=== PATIENT | female | born 1965 | race Caucasian/White ===

== ENCOUNTER 2017-11-03 11:45 | Inpatient (IN) | payer OTHER ==
[~2017-11-03] VITALS: Ht 167.6 cm; Wt 67.0 kg
[2017-11-03 12:39] LABS: BASO % 0.1 %; BASO ABS # 0.01 K/uL (0-0.2); EOS % 0.2 %; EOS ABS # 0.02 K/uL (0-0.5); HEMATOCRIT 33.9 % (37-47); HEMOGLOBIN 10.8 g/dL (12.0-16.0); IG# 0.06 K/uL (0.00-0.02); LYMPH % 16.6 %; LYMPH ABS # 1.41 K/uL (1.2-3.4); MEAN CELL VOLUME 80.5 fL (80-100); MEAN CORPUSCULAR HEMOGLOBIN 25.7 pg (25-34); MEAN CORPUSCULAR HGB CONC 31.9 g/dl (32-36); MEAN PLATELET VOLUME 9.6 fL (7.4-10.4); MONO % 5.1 %; MONO ABS # 0.43 K/uL (0.11-0.59); NEUT % 77.3 %; NEUT ABS # 6.55 K/uL (1.4-6.5); PLATELET COUNT 334 K/uL (130-400); RED CELL DISTRIBUTION WIDTH SD 62.1 fL (36.4-46.3); WHITE BLOOD COUNT 8.48 K/uL (4.8-10.8)
[2017-11-03] MEDS ORDERED: MoRPHine SULFATE 4 MG/ML 1 ML CARP\\VIAL IV STA (12:45)
[2017-11-03] MEDS ORDERED: SODIUM CHLORIDE 0.9% 1000ML 1,000 ML IV STA (12:45)
[2017-11-03] MEDS ORDERED: ONDANSETRON INJ 2 MG/ML 2 ML VIAL IV STA (12:45)
[2017-11-03 12:58] LABS: CALCIUM 8.9 mg/dl (8.5-10.1); CREATININE 0.63 mg/dl (0.60-1.20); POTASSIUM 3.2 mmol/L (3.5-5.1); TOTAL PROTEIN 6.4 gm/dl (6.4-8.2)
[2017-11-03] MEDS ORDERED: METR-163 PO (13:13)
[2017-11-03] MEDS ORDERED: METO25TA4 PO (13:13)
[2017-11-03] MEDS ORDERED: AMLO10TA3 PO (13:13)
[2017-11-03] MEDS ORDERED: AZAT50TA17 PO (13:13)
[2017-11-03] MEDS ORDERED: RANI150T85 PO (13:13)
[2017-11-03] MEDS ORDERED: MISCCAP80 PO (13:13)
[2017-11-03] MEDS ORDERED: PARO1TAB27 PO (13:13)
[2017-11-03] MEDS ORDERED: INSDGIPEN SC (13:13)
[2017-11-03] MEDS ORDERED: ESOM20CA PO (13:13)
[2017-11-03] MEDS ORDERED: CHOL100010 PO (13:13)
[2017-11-03] MEDS ORDERED: PRED10TA PO (13:13)
[2017-11-03] MEDS ORDERED: OPTIRAY 320 IV PRN (13:45)
[2017-11-03] MEDS ORDERED: MoRPHine SULFATE 4 MG/ML 1 ML CARP\\VIAL ONE (16:08)
--- NOTE | 2017-11-03 16:58 | DIAGNOSTIC IMAGING REPORT ---
CT ABD/PELVIS IV AND ORAL CONT CLINICAL HISTORY: Abdominal pain. History of abscess. Possible bowel obstruction. COMPARISON STUDY: None. TECHNIQUE: Following the IV administration of mL of Optiray-320, CT scan of the abdomen and pelvis was performed from the lung bases to the proximal femurs. Images are reviewed in the axial, sagittal, and coronal planes. IV contrast was administered without complication. A dose lowering technique was utilized adhering to the principles of ALARA. CT DOSE: 583.67 mGycm FINDINGS: Lower chest: The heart is normal in size and configuration, without pericardial effusion. The lung bases and pleural spaces are clear. Liver: There is hepatic steatosis. No focal masses are visualized. Gallbladder: Cholelithiasis. Spleen: Top normal in size measuring 11 mm. Pancreas: Unremarkable. Adrenal glands: There is a 2 cm left adrenal gland nodule. Kidneys: There is symmetric renal cortical enhancement. The kidneys are normal in size without hydronephrosis. Bowel: There are postsurgical changes involving the right colon/terminal ileum region. There is bowel wall thickening of the distal ileum. There is an area of nodular small bowel wall thickening versus adjacent mesenteric nodularity. There is a small bowel feces sign. There is distal small bowel dilatation. Distal ileal loops measure up to 3.5 cm in diameter. The findings result in a partial small bowel obstruction. Correlation with patient's prior surgical history would be of benefit to determine whether the above-mentioned findings are infectious/inflammatory, or secondary to a neoplastic process. There is gas and fecal material present within the colon. There is mild sigmoid wall thickening versus a nondistended segment. Peritoneum: There is a small amount of free fluid present surrounding the liver, within the pelvis, and within the right lower quadrant mesentery. No free air is visualized. There are postsurgical changes of a ventral hernia mesh repair. Vasculature: The abdominal aorta is normal in course and caliber. Adenopathy: None. Pelvic viscera: The bladder, and pelvic viscera are unremarkable. Skeletal structures: No destructive osseous lesions are seen. IMPRESSION: 1. Postsurgical changes within the right colon/terminal ileum region. 2. Mildly dilated distal ileal bowel loops with a small bowel feces sign and areas of small bowel wall thickening. There is an area of nodular small bowel wall thickening versus adjacent mesenteric nodularity. Correlation with the patient's prior history would be useful to help exclude a neoplastic process. The findings result in a partial small bowel obstruction. 3. Low volume ascites 4. Cholelithiasis 5. Hepatic steatosis 6. 2 cm left adrenal nodule 7. Sigmoid wall thickening versus a nondistended segment. Electronically signed by: Jakub Cancino M.D. 11/03/2017 4:57 PM Dictated Date/Time: 11/03/2017 4:31 PM
[2017-11-03] MEDS ORDERED: CARBOHYDRATES FOR HYPOGLYCEMIA PO PRN (18:45)
[2017-11-03] MEDS ORDERED: DEXTROSE 50% 50 ML SYR IV PRN (18:45)
[2017-11-03] MEDS ORDERED: NXM/40 PO (18:45)
[2017-11-03] MEDS ORDERED: METR1TAB4 PO (18:45)
[2017-11-03] MEDS: INSULIN ASPART 100 UNITS/ML 3 ML PEN SC SCH ×2 (18:45→20:51)
[2017-11-03] MEDS ORDERED: GLUCAGON FOR INJ 1 MG VIAL SQ PRN (18:45)
[2017-11-03] MEDS ORDERED: GLUCOSE 40% GEL 15 GM TUBE PO PRN (18:45)
[2017-11-03] MEDS ORDERED: SODIUM CHLORIDE 0.9% 1000ML 1,000 ML IV SCH (18:45)
[2017-11-03] MEDS ORDERED: GLUCOSE 10 TABS/TUBE PO PRN (18:45)
--- NOTE | 2017-11-03 18:50 | History and Physical ---
History & Physical Date & Time of Service: Nov 03, 2017 at 18:50 Chief Complaint: Abdominal Pain Primary Care Physician: No Doctor, Assigned History of Present Illness Source: patient, clinic records, hospital records Patient is a 52-year-old female with a PMH of Crohn's disease (s/p ileocecectomy at [facility] [facility] in 2006) on Imuran and prednisone, steroid-induced diabetes , anemia, GERD, HTN, depression and narcolepsy who presents with worsening abdominal pain 2 days. Patient has been at the [facility] this week and started to experience constant epigastric and lower abdominal pain 2 days ago associated with nausea and bloating. Normally has 2-3 loose stools daily, but last stool was yesterday morning. Denies any fever, chills, hematemesis or vomiting. Follows with [facility] and [place] for Crohn's disease and is on Imuran and a tapering dose of prednisone (down to 10mg PO daily) with plans to initiate Humira soon. H/o SBO in the past, most recently occurring in September. Has an abscess of the small intestine for which she has been taking Flagyl 3 times daily. Is on day 12 of 14 for antibiotic. Was also recently started on Lantus due to suspected steroid-induced diabetes. Did not take any home medications today. PCP is Dr. Castrejon in [place]. Past Medical/Surgical History Medical Problems: (1) Anemia Status: Chronic (2) Crohn's disease with abscess Permanent Comment: S/p resection in 2006 Status: Chronic (3) Depression Status: Chronic (4) Gallstones Status: Chronic (5) GERD (gastroesophageal reflux disease) Status: Chronic (6) Hypertension Status: Chronic (7) Narcolepsy Status: Chronic (8) Steroid-induced diabetes mellitus Status: Chronic (9) Tobacco use disorder Status: Chronic Social History Smoking Status: Current Every Day Smoker (4-5 cigarettes ) Alcohol Use: occasionally Housing status: lives with family Allergies Coded Allergies: Sulfa Antibiotics (Unverified Allergy, Intermediate, RASH, 11/03/17) Home Medications Scheduled Amlodipine (Norvasc), 10 MG PO DAILY Azathioprine (Imuran), 100 MG PO DAILY Esomeprazole Magnesium (Nexium), 1 CAP PO BID Insulin Glargine (Lantus Solostar), 7 UNITS SC QPM Metoprolol Succinate (Toprol Xl), 25 MG PO DAILY Metronidazole (Flagyl), 250 MG PO TID Paroxetine (Paxil), 40 MG PO BID Prednisone (Prednisone), 1 DOSE PO UD Probiotic Product (Probiotic), 1 CAP PO TID Ranitidine (Zantac), 300 MG PO QAM Review of Systems Ten systems reviewed and negative except as noted in the HPI. Physical Exam Vital Signs Date Time Temp Pulse Resp B/P (MAP) Pulse Ox O2 Delivery O2 Flow Rate FiO2 11/03/17 18:30 80 13 174/91 93 11/03/17 17:15 77 12 92 11/03/17 16:45 77 13 91 11/03/17 16:09 82 11/03/17 16:00 182/92 11/03/17 15:45 78 14 95 11/03/17 15:43 152/88 11/03/17 15:30 152/88 11/03/17 15:15 82 15 96 11/03/17 15:00 149/80 11/03/17 14:45 81 12 11/03/17 14:30 157/74 11/03/17 14:15 74 14 98 11/03/17 14:00 149/82 11/03/17 13:45 87 14 92 11/03/17 13:42 78 13 166/88 94 Room Air 11/03/17 13:38 166/88 11/03/17 13:15 76 14 95 11/03/17 12:45 80 16 97 11/03/17 12:23 76 11/03/17 11:57 37.4 81 20 173/92 95 Room Air 11/03/17 11:47 173/92 General Appearance: WD/WN, + mild distress, + pertinent finding (NG tube ) Head: normocephalic, atraumatic Eyes: normal inspection, PERRL, sclerae normal ENT: normal ENT inspection, hearing grossly normal, pharynx normal (mucous membranes moist ) Neck: supple, thyroid normal, trachea midline Respiratory/Chest: chest non-tender, lungs clear, normal breath sounds, no respiratory distress, no accessory muscle use Cardiovascular: regular rate, rhythm, no murmur, normal peripheral pulses Abdomen/GI: soft, + tenderness (Epigastric and lower abdominal tenderness. No guarding.), + abnormal bowel sounds (Hypoactive), + distended, + pertinent finding (Well-healed vertical surgical scar) Extremities/Musculoskelatal: normal inspection, no calf tenderness, no pedal edema Neurologic/Psych: no motor/sensory deficits, alert, normal mood/affect, oriented x 3 Skin: normal color, warm/dry Diagnostics Laboratory Results Results Past 24 Hours Test 11/03/17 12:13 11/03/17 12:15 11/03/17 12:24 11/03/17 12:28 Range/Units Urine Color YELLOW Urine Appearance CLEAR CLEAR Urine pH 7.0 4.5-7.5 Urine Specific [place] 1.014 1.000-1.030 Urine Protein TRACE NEG Urine Glucose (UA) 3+ NEG Urine Ketones TRACE NEG Urine Occult Blood NEG NEG Urine Nitrite NEG NEG Urine Bilirubin NEG NEG Urine Urobilinogen NEG NEG Urine Leukocyte Esterase SMALL NEG Urine WBC (Auto) 10-30 0-5 /hpf Urine RBC (Auto) 0-4 0-4 /hpf Urine Hyaline Casts (Auto) 0 0-5 /lpf Urine Epithelial Cells (Auto) >30 0-5 /lpf Urine Bacteria (Auto) 1+ NEG Urine Renal Epithelial Cells 0-5 /lpf Urine Yeast (Auto) BUDDING NONE PRSENT White Blood Count 8.48 4.8-10.8 K/uL Red Blood Count 4.21 4.2-5.4 M/uL Hemoglobin 10.8 12.0-16.0 g/dL Hematocrit 33.9 37-47 % Mean Corpuscular Volume 80.5 80-100 fL Mean Corpuscular Hemoglobin 25.7 25-34 pg Mean Corpuscular Hemoglobin Concent 31.9 32-36 g/dl Platelet Count 334 130-400 K/uL Mean Platelet Volume 9.6 7.4-10.4 fL Neutrophils (%) (Auto) 77.3 % Lymphocytes (%) (Auto) 16.6 % Monocytes (%) (Auto) 5.1 % Eosinophils (%) (Auto) 0.2 % Basophils (%) (Auto) 0.1 % Neutrophils # (Auto) 6.55 1.4-6.5 K/uL Lymphocytes # (Auto) 1.41 1.2-3.4 K/uL Monocytes # (Auto) 0.43 0.11-0.59 K/uL Eosinophils # (Auto) 0.02 0-0.5 K/uL Basophils # (Auto) 0.01 0-0.2 K/uL RDW Standard Deviation 62.1 36.4-46.3 fL RDW Coefficient of Variation 21.0 11.5-14.5 % Immature Granulocyte % (Auto) 0.7 % Immature Granulocyte # (Auto) 0.06 0.00-0.02 K/uL Large Platelets 1+ Polychromasia 1+ Microcytosis PRESENT Sodium Level 138 136-145 mmol/L Potassium Level 3.2 3.5-5.1 mmol/L Chloride Level 100 98-107 mmol/L Carbon Dioxide Level 29 21-32 mmol/L Anion Gap 9.0 3-11 mmol/L Blood Urea Nitrogen 9 7-18 mg/dl Creatinine 0.63 0.60-1.20 mg/dl Est Creatinine Clear Calc Drug Dose 95.5 ml/min Estimated GFR () 117.9 Estimated GFR (Non- 101.7 BUN/Creatinine Ratio 13.7 10-20 Random Glucose 231 70-99 mg/dl Calcium Level 8.9 8.5-10.1 mg/dl Magnesium Level 1.9 1.8-2.4 mg/dl Total Bilirubin 0.5 0.2-1 mg/dl Aspartate Amino Transf (AST/SGOT) 23 15-37 U/L Alanine Aminotransferase (ALT/SGPT) 24 12-78 U/L Alkaline Phosphatase 99 45-117 U/L Total Protein 6.4 6.4-8.2 gm/dl Albumin 3.0 3.4-5.0 gm/dl Globulin 3.4 2.5-4.0 gm/dl Albumin/Globulin Ratio 0.9 0.9-2 Lipase 224 73-393 U/L Bedside Glucose 229 70-90 mg/dl Bedside Lactic Acid Venous 0.98 0.90-1.70 mmol/L Microbiology Results 11/03/17 Urine Culture, Received Pending Diagnostic Radiology CT Abd/pelvis IMPRESSION: 1. Postsurgical changes within the right colon/terminal ileum region. 2. Mildly dilated distal ileal bowel loops with a small bowel feces sign and areas of small bowel wall thickening. There is an area of nodular small bowel wall thickening versus adjacent mesenteric nodularity. Correlation with the patient's prior history would be useful to help exclude a neoplastic process. The findings result in a partial small bowel obstruction. 3. Low volume ascites 4. Cholelithiasis 5. Hepatic steatosis 6. 2 cm left adrenal nodule 7. Sigmoid wall thickening versus a nondistended segment. Impression Assessment and Plan Patient is a 52-year-old female with a PMH of Crohn's disease (s/p ileocecectomy at [facility] in 2006) on Imuran and prednisone, steroid-induced diabetes , anemia, GERD, HTN, depression and narcolepsy who presents with worsening abdominal pain 2 days and was found to have a partial small bowel obstruction. Partial small bowel obstruction -Abdominal pain, distention, nausea x 2 days -CT abd/pelvis with findings consistent with partial small bowel obstruction. -NG tube inserted -Keep NPO with gentle IV fluids -General surgery consulted -IV Tylenol for pain PRN Crohn's Disease with abscess -Follows with [facility] in [facility] -Hold Imuran until resumed to PO -Given low dose IV solu-medrol in plase of oral prednisone until resumed to PO -Continue IV Flagyl for abscess (has completed 12/14 days treatment) Steroid-induced DM -Has been on long-term steroid use, currently being tapered -Checking hgb a1c -SSI while in-patient -Continue reduced home dose of Lantus while NPO -BSG checks Q6 while NPO HTN -BP elevated 2/2 missed medication today, abdominal pain -Lopressor 5mg IV Q6, Vasotec 1.25mg IV daily while NPO -Once able to tolerate PO, resume amlodipine and metoprolol ER Anemia -Stable at 10.8 -No active bleeding -Monitor CBC GERD -Protonix IV 40mg push daily Depression Narcolepsy -Resume Paxil once able to tolerate PO DVT Ppx: Victoriano cazares Code status: FULL PCP: Lucía ([facility] Ole[facility]) Dispo: Plan to return home once medically stable. Patient seen in collaboration with Dr. Lieberman. Please see addendum. Attending physician Dr. Lieberman addendum I have seen and examined the patient with LITZY Barbour and agree with the assessment and plan as above and would like to comment that patient presented to the emergency room for small bowel obstruction. Already has NG tube placed. Patient on physical exam is not in distress however she is concerned about lack of bowel movement and not passing flatus. Reports poor oral appetite at home due t abdominal pain which she describes as circumferential around the entire abdomen. Patient has clear lung exam and normal heart rate. Somewhat hypertensive probably due to abdominal discomfort and symptoms At this time medical team changing home oral medications to Iv near equivalents so that NG tube can suction and decompress bowels. Appreciate general surgery recommendations. Resuscitation Status VTE Prophylaxis Will order VTE Prophylaxis: Yes
[2017-11-03] MEDS ORDERED: METOPROLOL TARTRATE 1 MG/ML VIAL IV. SCH (19:00)
--- NOTE | 2017-11-03 19:12 | EMERGENCY ROOM VISIT NOTE ---
History Report prepared by Ashutosh: Chi Lawler Under the Supervision of: Dr. Haseeb Aiken M.D. First contact with patient: 12:41 Chief Complaint: ABDOMINAL PAIN Stated Complaint: ABDOMINAL PAIN Nursing Triage Summary: patient to ED via EMS from [facility], reports abdominal pain/constipation x 2-3 days, states "I'm having a crohn's flair, also I think I may have an obstruction, pain is right where my surgeries were before and an abscess." History of Present Illness The patient is a 52 year old female who presents to the Emergency Room with complaints of constant abdominal pain since yesterday. She rates her pain at a severity of 7/10. She reports a history of Crohn's and states that the pain is located where her past surgeries were, with the most recent surgery being 10 years ago. She states that she had an abscess in that area, and that part of her colon and small bowel were removed. She reports that she takes Imuran. She notes current abdominal bloating. She states that she has nausea, but denies vomiting. She reports that she did not take her temperature, but feels chills. She denies urinary symptoms, cough, or congestion. She reports that her last bowel movement was 2 days ago. The patient reports that she has been on Prednisone since March, and her dose was recently lowered. She states that today was the first day she has taken only one pill. She notes that she is diabetic and has started taking insulin this week. The patient reports that she still has her appendix. She states that she is anemic with her last hemoglobin at either a 9 or 10. She notes that she has received 2 blood transfusions. The patient reports that she lives in [place] but was brought to the ER from the [facility] today. Source of History: patient Onset: yesterday Position: abdomen Symptom Intensity: 7/10 Timing: constant Associated Symptoms: + chills, + nausea, No vomiting Note: abdominal bloating Review of Systems See HPI for pertinent positives & negatives. A total of 10 systems reviewed and were otherwise negative. Past Medical & Surgical Medical Problems: (1) Anemia (2) Crohn's disease with abscess (3) Depression (4) Gallstones (5) GERD (gastroesophageal reflux disease) (6) Hypertension (7) Narcolepsy (8) Steroid-induced diabetes mellitus (9) Tobacco use disorder Family History non-contributory Social History Lives in [place]. She was at the [facility] today. Current/Historical Medications Scheduled Amlodipine (Norvasc), 10 MG PO DAILY Azathioprine (Imuran), 100 MG PO DAILY Esomeprazole Magnesium (Nexium), 1 CAP PO BID Insulin Glargine (Lantus Solostar), 7 UNITS SC QPM Metoprolol Succinate (Toprol Xl), 25 MG PO DAILY Metronidazole (Flagyl), 250 MG PO TID Paroxetine (Paxil), 40 MG PO BID Prednisone (Prednisone), 1 DOSE PO UD Probiotic Product (Probiotic), 1 CAP PO TID Ranitidine (Zantac), 300 MG PO QAM Allergies Coded Allergies: Sulfa Antibiotics (Unverified Allergy, Intermediate, RASH, 11/03/17) Physical Exam Vital Signs Date Time Temp Pulse Resp B/P (MAP) Pulse Ox O2 Delivery O2 Flow Rate FiO2 11/03/17 18:30 80 13 174/91 93 11/03/17 17:15 77 12 92 11/03/17 16:45 77 13 91 11/03/17 16:09 82 11/03/17 16:00 182/92 11/03/17 15:45 78 14 95 11/03/17 15:43 152/88 11/03/17 15:30 152/88 11/03/17 15:15 82 15 96 11/03/17 15:00 149/80 11/03/17 14:45 81 12 11/03/17 14:30 157/74 11/03/17 14:15 74 14 98 11/03/17 14:00 149/82 11/03/17 13:45 87 14 92 11/03/17 13:42 78 13 166/88 94 Room Air 11/03/17 13:38 166/88 11/03/17 13:15 76 14 95 11/03/17 12:45 80 16 97 11/03/17 12:23 76 11/03/17 11:57 37.4 81 20 173/92 95 Room Air 11/03/17 11:47 173/92 Physical Exam GENERAL: Patient is in no acute distress. HEENT: No acute trauma, normocephalic atraumatic, mucous membranes dry, no nasal congestion, no scleral icterus. NECK: No stridor, no adenopathy, no meningismus, trachea is midline. LUNGS: Clear to auscultation bilaterally, no wheeze, no rhonchi, breath sounds equal. HEART: Without murmurs gallops or rubs, regular rate and rhythm. ABDOMEN: Soft, diffusely moderate tender, bowel sounds positive, no hernias, no peritonitis. EXTREMITIES: No cyanosis or edema, full range of motion of all the joints without pain or difficulty, no signs for acute trauma. NEUROLOGIC: Oriented x 3, no acute motor or sensory deficits, no focal weakness. SKIN: No rash, no jaundice, no diaphoresis. Medical Decision & Procedures ER Provider Diagnostic Interpretation: Radiology results as stated below per my review and radiologist interpretation: CT ABD/PELVIS IV AND ORAL CONT CLINICAL HISTORY: Abdominal pain. History of abscess. Possible bowel obstruction. COMPARISON STUDY: None. TECHNIQUE: Following the IV administration of mL of Optiray-320, CT scan of the abdomen and pelvis was performed from the lung bases to the proximal femurs. Images are reviewed in the axial, sagittal, and coronal planes. IV contrast was administered without complication. A dose lowering technique was utilized adhering to the principles of ALARA. CT DOSE: 583.67 mGycm FINDINGS: Lower chest: The heart is normal in size and configuration, without pericardial effusion. The lung bases and pleural spaces are clear. Liver: There is hepatic steatosis. No focal masses are visualized. Gallbladder: Cholelithiasis. Spleen: Top normal in size measuring 11 mm. Pancreas: Unremarkable. Adrenal glands: There is a 2 cm left adrenal gland nodule. Kidneys: There is symmetric renal cortical enhancement. The kidneys are normal in size without hydronephrosis. Bowel: There are postsurgical changes involving the right colon/terminal ileum region. There is bowel wall thickening of the distal ileum. There is an area of nodular small bowel wall thickening versus adjacent mesenteric nodularity. There is a small bowel feces sign. There is distal small bowel dilatation. Distal ileal loops measure up to 3.5 cm in diameter. The findings result in a partial small bowel obstruction. Correlation with patient's prior surgical history would be of benefit to determine whether the above-mentioned findings are infectious/inflammatory, or secondary to a neoplastic process. There is gas and fecal material present within the colon. There is mild sigmoid wall thickening versus a nondistended segment. Peritoneum: There is a small amount of free fluid present surrounding the liver, within the pelvis, and within the right lower quadrant mesentery. No free air is visualized. There are postsurgical changes of a ventral hernia mesh repair. Vasculature: The abdominal aorta is normal in course and caliber. Adenopathy: None. Pelvic viscera: The bladder, and pelvic viscera are unremarkable. Skeletal structures: No destructive osseous lesions are seen. IMPRESSION: 1. Postsurgical changes within the right colon/terminal ileum region. 2. Mildly dilated distal ileal bowel loops with a small bowel feces sign and areas of small bowel wall thickening. There is an area of nodular small bowel wall thickening versus adjacent mesenteric nodularity. Correlation with the patient's prior history would be useful to help exclude a neoplastic process. The findings result in a partial small bowel obstruction. 3. Low volume ascites 4. Cholelithiasis 5. Hepatic steatosis 6. 2 cm left adrenal nodule 7. Sigmoid wall thickening versus a nondistended segment. Electronically signed by: Jakub Cancino M.D. 11/03/2017 4:57 PM Dictated Date/Time: 11/03/2017 4:31 PM Laboratory Results 11/03/17 12:15 Red Blood Count 4.21, Mean Corpuscular Volume 80.5, Mean Corpuscular Hemoglobin 25.7, Mean Corpuscular Hemoglobin Concent 31.9, Mean Platelet Volume 9.6, Neutrophils (%) (Auto) 77.3, Lymphocytes (%) (Auto) 16.6, Monocytes (%) (Auto) 5.1, Eosinophils (%) (Auto) 0.2, Basophils (%) (Auto) 0.1, Neutrophils # (Auto) 6.55, Lymphocytes # (Auto) 1.41, Monocytes # (Auto) 0.43, Eosinophils # (Auto) 0.02, Basophils # (Auto) 0.01 11/03/17 12:15 Test 11/03/17 12:13 11/03/17 12:15 11/03/17 12:24 11/03/17 12:28 Urine Color YELLOW Urine Appearance CLEAR (CLEAR) Urine pH 7.0 (4.5-7.5) Urine Specific [place] 1.014 (1.000-1.030) Urine Protein TRACE (NEG) Urine Glucose (UA) 3+ (NEG) Urine Ketones TRACE (NEG) Urine Occult Blood NEG (NEG) Urine Nitrite NEG (NEG) Urine Bilirubin NEG (NEG) Urine Urobilinogen NEG (NEG) Urine Leukocyte Esterase SMALL (NEG) Urine WBC (Auto) 10-30 /hpf (0-5) Urine RBC (Auto) 0-4 /hpf (0-4) Urine Hyaline Casts (Auto) 0 /lpf (0-5) Urine Epithelial Cells (Auto) >30 /lpf (0-5) Urine Bacteria (Auto) 1+ (NEG) Urine Renal Epithelial Cells /lpf (0-5) Urine Yeast (Auto) BUDDING (NONE PRSENT) White Blood Count 8.48 K/uL (4.8-10.8) Red Blood Count 4.21 M/uL (4.2-5.4) Hemoglobin 10.8 g/dL (12.0-16.0) Hematocrit 33.9 % (37-47) Mean Corpuscular Volume 80.5 fL (80-100) Mean Corpuscular Hemoglobin 25.7 pg (25-34) Mean Corpuscular Hemoglobin Concent 31.9 g/dl (32-36) Platelet Count 334 K/uL (130-400) Mean Platelet Volume 9.6 fL (7.4-10.4) Neutrophils (%) (Auto) 77.3 % Lymphocytes (%) (Auto) 16.6 % Monocytes (%) (Auto) 5.1 % Eosinophils (%) (Auto) 0.2 % Basophils (%) (Auto) 0.1 % Neutrophils # (Auto) 6.55 K/uL (1.4-6.5) Lymphocytes # (Auto) 1.41 K/uL (1.2-3.4) Monocytes # (Auto) 0.43 K/uL (0.11-0.59) Eosinophils # (Auto) 0.02 K/uL (0-0.5) Basophils # (Auto) 0.01 K/uL (0-0.2) RDW Standard Deviation 62.1 fL (36.4-46.3) RDW Coefficient of Variation 21.0 % (11.5-14.5) Immature Granulocyte % (Auto) 0.7 % Immature Granulocyte # (Auto) 0.06 K/uL (0.00-0.02) Large Platelets 1+ Polychromasia 1+ Microcytosis PRESENT Anion Gap 9.0 mmol/L (3-11) Est Creatinine Clear Calc Drug Dose 95.5 ml/min Estimated GFR () 117.9 Estimated GFR (Non- 101.7 BUN/Creatinine Ratio 13.7 (10-20) Calcium Level 8.9 mg/dl (8.5-10.1) Magnesium Level 1.9 mg/dl (1.8-2.4) Total Bilirubin 0.5 mg/dl (0.2-1) Aspartate Amino Transf (AST/SGOT) 23 U/L (15-37) Alanine Aminotransferase (ALT/SGPT) 24 U/L (12-78) Alkaline Phosphatase 99 U/L (45-117) Total Protein 6.4 gm/dl (6.4-8.2) Albumin 3.0 gm/dl (3.4-5.0) Globulin 3.4 gm/dl (2.5-4.0) Albumin/Globulin Ratio 0.9 (0.9-2) Lipase 224 U/L (73-393) Bedside Glucose 229 mg/dl (70-90) Bedside Lactic Acid Venous 0.98 mmol/L (0.90-1.70) Laboratory results reviewed by me. Medications Administered Medications (Trade) Dose Ordered Sig/Anatoly Route Start Time Stop Time Status Last Admin Dose Admin Sodium Chloride 1,000 ml @ 999 mls/hr Q1H1M STAT IV 11/03/17 12:45 11/03/17 13:45 DC 11/03/17 13:41 999 MLS/HR Ondansetron HCl (Zofran Inj) 4 mg NOW STAT IV 11/03/17 12:45 11/03/17 12:51 DC 11/03/17 13:41 4 MG Morphine Sulfate (MoRPHine SULFATE INJ) 4 mg NOW STAT IV 11/03/17 12:45 11/03/17 12:51 DC 11/03/17 16:10 4 MG ED Course 1244: The patient was evaluated in room C2B. A complete history and physical exam was performed. 1245: Ordered Morphine Sulfate 4 mg IV, Zofran 4 mg IV, Sodium Chloride 1000 ml @ 999 mls/hr IV 1732: I updated the patient on her current results. 1735: I consulted Darya Barbour PA-C: [facility] Hospitalist. She will reevaluate the patient for admission. Medical Decision Differential diagnosis: Dehydration, constipation, bowel obstruction, abscess, Crohn's flare, anemia, electrolyte imbalance, UTI There is no leukocytosis or concerning anemia. No significant electrolyte abnormality, kidney failure, hepatitis or pancreatitis. Urinalysis shows contamination, no obvious infection. Lactic acid level was not elevated making sepsis or bowel ischemia less likely. Chest film did not show pneumonia or free air. Abdominal and pelvis CT shows evidence for Crohn's disease with a partial small bowel obstruction, no abscess or free air seen. The patient received IV saline, IV morphine and IV Zofran. She eventually had an NG tube placed to try to relieve some of the bowel obstruction. The patient requires a hospital stay. I discussed the case with general surgery , no acute surgical intervention was required. Medical management for now was advised. I talked with the patient and case management. The on-call hospitalist was consulted. Patient does seem to be resting more comfortably since treatment. Medication Reconcilliation Current Medication List: was personally reviewed by me Blood Pressure Screening Patient's blood pressure: Elevated blood pressure referred to hospitalist Consults Time Called: 173 Consulting Physician: Darya Barbour PA-C: [facility] Returned Call: [phone] I consulted Darya Barbour PA-C: [facility] Hospitalist. She will reevaluate the patient for admission. Impression Primary Impression: Partial small bowel obstruction Additional Impression: Crohn's disease Scribe Attestation The scribe's documentation has been prepared under my direction and personally reviewed by me in its entirety. I confirm that the note above accurately reflects all work, treatment, procedures, and medical decision making performed by me. Departure Information Dispostion Being Evaluated By Hospitalist Referrals No Doctor, Assigned (PCP) Patient Instructions My [facility] Problem Qualifiers
[2017-11-03 19:50] VITALS: O2SAT 96
[2017-11-03 20:00] VITALS: BP 154/80; TEMP 37.5; BMI 23.8
[2017-11-03] MEDS ORDERED: ACETAMINOPHEN IV 650 MG in EMPTY BAG 0 ML IV PRN (20:00)
[2017-11-03 20:13] VITALS: BP 154/80; PULSE 83; TEMP 37.5; O2SAT 95
[2017-11-03] MEDS ORDERED: METHYLPREDNISOLONE IV 10 MG in SYRINGE 0 ML IV ONE (20:15)
[2017-11-03] MEDS ORDERED: ENALAPRILAT IV 1.25 MG in DEXTROSE 5% 25ML 25 ML IV ONE (20:15)
[2017-11-03] MEDS: NSS + 20MEQ KCL 1000ML 1,000 ML IV SCH (20:28)
[2017-11-03] MEDS: PANTOprazole INJ 40 MG in SYRINGE 0 ML IV SCH (20:29)
[2017-11-03] MEDS ORDERED: INSULIN GLARGINE SOLOSTAR 100 UNITS/ML 3 ML PEN SC SCH (21:00)
[2017-11-03] MEDS ORDERED: INSULIN ASPART 100 UNITS/ML 3 ML PEN SC SCH (21:00)
[2017-11-03] MEDS: NSS IV SCH (22:18)
[2017-11-03] MEDS: METRONIDAZOLE IV SCH (22:18)
[2017-11-03] MEDS: PREMIXED NSS IV SCH (22:18)
[2017-11-03 23:12] VITALS: BP 179/82; PULSE 88; TEMP 36.9; O2SAT 96
[2017-11-03] MEDS ORDERED: NURSING DECISION MEDICATION ORDER SCH (23:45)
[2017-11-03 23:59] VITALS: BP 175/85
[2017-11-04] MEDS: INSULIN ASPART 100 UNITS/ML 3 ML PEN SC SCH ×3 (00:17→12:59)
[2017-11-04 00:19] VITALS: BP 144/82
[2017-11-04] MEDS: METRONIDAZOLE IV SCH ×2 (06:10→12:59)
[2017-11-04] MEDS: PREMIXED NSS IV SCH ×2 (06:10→12:59)
[2017-11-04] MEDS: NSS IV SCH ×2 (06:10→12:59)
[2017-11-04 07:00] VITALS: BP 157/64; PULSE 78; TEMP 36.7; O2SAT 95
[2017-11-04 08:12] VITALS: BP_SYST 133; BP_SYST 200; BP_DIAS 120; BP_DIAS 80; PULSE 68; TEMP 36.6; O2SAT 97
[2017-11-04] MEDS ORDERED: ENALAPRILAT IV 1.25 MG in DEXTROSE 5% 25ML 25 ML IV SCH (09:00)
[2017-11-04] MEDS: METOPROLOL SUCC 25MG EXT REL TAB PO SCH ×2 (09:00→09:04)
[2017-11-04] MEDS ORDERED: METHYLPREDNISOLONE IV 10 MG in SYRINGE 0 ML IV SCH (09:00)
[2017-11-04 09:17] LABS: HEMATOCRIT 31.7 % (37-47); HEMOGLOBIN 9.9 g/dL (12.0-16.0); MEAN CELL VOLUME 81.3 fL (80-100); MEAN CORPUSCULAR HEMOGLOBIN 25.4 pg (25-34); MEAN CORPUSCULAR HGB CONC 31.2 g/dl (32-36); MEAN PLATELET VOLUME 9.2 fL (7.4-10.4); PLATELET COUNT 302 K/uL (130-400); RED CELL DISTRIBUTION WIDTH CV 20.5 % (11.5-14.5); RED CELL DISTRIBUTION WIDTH SD 61.2 fL (36.4-46.3); WHITE BLOOD COUNT 7.51 K/uL (4.8-10.8)
--- NOTE | 2017-11-04 09:40 | Pre-Operative Consultation ---
History General Date of Service: Nov 04, 2017. Stated Complaint: abdominal pain HPI HPI: The patient is a 52 year old female being seen at the request of LITZY Mendiola and Dr. Lieberman for small bowel obstruction in the setting of Crohn's disease. She is typically managed by her GI doc at her home. She is s/p partial small bowel resection in 2006 at [facility] [place] Currently was being weaned down prednisone and on imuran with plans to convert to humira. Also, on antibiotics for small bowel abscess. She was at the [facility] when she developed central constant abdominal pain, 7/10 in intensity, associated with bloating and nausea. No vomiting. Last bowel movement was 2 days ago. Currently, she has an ng in place , feels better but is very sleepy and has difficulty staying awake (also has narcolepsy). Historian: patient Risk Assessment Daily beta willy use?: Yes Problem List Medical Problems: (1) Crohn's disease Status: Acute (2) Partial small bowel obstruction Status: Acute Medical & Surgical History Past Medical History: diabetes (recently started insulin), hypertension, other (anemia) Past Surgical History: bowel resection Social History Hx Tobacco Use In Past Year?: Yes Smoking Status: Current Every Day Smoker Housing status: lives with family Allergies Allergies: Coded Allergies: Sulfa Antibiotics (Unverified Allergy, Intermediate, RASH, 11/03/17) Medications Current Inpatient Medications Current Inpatient Medications Medications (Trade) Dose Ordered Sig/Anatoly Route Start Time Stop Time Status Last Admin Dose Admin Ioversol (Optiray 320) 100 ml UD PRN IV 11/03/17 13:45 11/07/17 13:44 Insulin Glargine (Lantus Solostar Pen) 4 units QPM SC 11/03/17 21:00 12/03/17 20:59 11/03/17 21:01 4 UNITS Glucose (Glucose 40% Gel) 15-30 GRAMS 15 GRAMS... UD PRN PO 11/03/17 18:45 12/03/17 18:44 Glucose (Glucose Chew Tab) 4-8 Tablets 4 Tabl... UD PRN PO 11/03/17 18:45 12/03/17 18:44 Dextrose (Dextrose 50% 50ML Syringe) 25-50ML 25ML FOR ... UD PRN IV 11/03/17 18:45 12/03/17 18:44 Glucagon (Glucagon Inj) 1 mg UD PRN SQ 11/03/17 18:45 12/03/17 18:44 Carbohydrates (Carbohydrates For Hypoglycemia) 15-30 GRAMS 15 grams if BSG 54-69... UD PRN PO 11/03/17 18:45 12/03/17 18:44 Potassium Chloride/Sodium Chloride 1,000 ml @ 75 mls/hr [id number] IV 11/03/17 20:15 12/03/17 20:14 11/03/17 20:28 75 MLS/HR Enalaprilat 1.25 mg/Dextrose 26 ml @ 100 mls/hr DAILY IV 11/04/17 09:00 12/04/17 08:59 11/04/17 09:03 100 MLS/HR Metronidazole 250 mg/Prmx 50 ml @ 50 mls/hr Q8 IV 11/03/17 22:00 11/13/17 21:59 11/04/17 06:10 50 MLS/HR Pantoprazole Sodium 40 mg/ Syringe 10 ml @ 5 mls/min DAILY@11 IV 11/03/17 20:15 12/03/17 20:14 11/03/17 20:29 5 MLS/MIN Methylprednisolone Sodium Succinate 10 mg/Syringe 0.25 ml @ 1.5 mls/min DAILY IV 11/04/17 09:00 12/04/17 08:59 11/04/17 09:03 1.5 MLS/MIN Acetaminophen 650 mg/Empty Bag 65 ml @ 260 mls/hr Q6H PRN IV 11/03/17 20:00 12/03/17 19:59 11/03/17 23:31 260 MLS/HR Metoprolol Succinate (Toprol Xl Tab) 25 mg DAILY PO 11/04/17 09:00 12/04/17 08:59 Insulin Aspart (novoLOG ASPART) SLIDING SCALE If C... Q6 SC 11/04/17 00:00 12/04/17 00:00 11/04/17 06:05 1 UNITS Review of Systems Review of Systems Constitutional: chills, denies fever Eyes: denies: no symptoms ENT: denies: no symptoms reported Cardiovascular: denies: no symptoms reported Respiratory: denies: no symptoms reported Gastrointestinal: see HPI Integumentary: no symptoms reported Neurologic: reports: other (narcolepsy) Endocrine: other (recently started insulin) Hematologic / Lymphatic: anemia Physical Exam Physical Exam General Appearance: + WD/WN, No distress Ears, Nose, Throat: + normal ENT inspection Neck: No abnormal inspection, No tracheal deviation Respiratory: No accessory muscle use, No decreased breath sounds Cardiovascular: No abnormal rate, No edema, No abnormal rhythm Abdomen: + abnormal bowel sounds (high pitched), + tenderness (mild diffuse), + distension (moderate), No organomegaly, No guarding Extremities: No edema Neurologic/Psychiatric: + other (very sleepy and difficult to arouse) Skin Characteristics: No cyanosis, No mottling Diagnostics Labs Labs Results Past 24 Hours Test 11/03/17 12:13 11/03/17 12:15 11/03/17 12:24 11/03/17 12:28 Range/Units Urine Color YELLOW Urine Appearance CLEAR CLEAR Urine pH 7.0 4.5-7.5 Urine Specific [place] 1.014 1.000-1.030 Urine Protein TRACE NEG Urine Glucose (UA) 3+ NEG Urine Ketones TRACE NEG Urine Occult Blood NEG NEG Urine Nitrite NEG NEG Urine Bilirubin NEG NEG Urine Urobilinogen NEG NEG Urine Leukocyte Esterase SMALL NEG Urine WBC (Auto) 10-30 0-5 /hpf Urine RBC (Auto) 0-4 0-4 /hpf Urine Hyaline Casts (Auto) 0 0-5 /lpf Urine Epithelial Cells (Auto) >30 0-5 /lpf Urine Bacteria (Auto) 1+ NEG Urine Renal Epithelial Cells 0-5 /lpf Urine Yeast (Auto) BUDDING NONE PRSENT White Blood Count 8.48 4.8-10.8 K/uL Red Blood Count 4.21 4.2-5.4 M/uL Hemoglobin 10.8 12.0-16.0 g/dL Hematocrit 33.9 37-47 % Mean Corpuscular Volume 80.5 80-100 fL Mean Corpuscular Hemoglobin 25.7 25-34 pg Mean Corpuscular Hemoglobin Concent 31.9 32-36 g/dl Platelet Count 334 130-400 K/uL Mean Platelet Volume 9.6 7.4-10.4 fL Neutrophils (%) (Auto) 77.3 % Lymphocytes (%) (Auto) 16.6 % Monocytes (%) (Auto) 5.1 % Eosinophils (%) (Auto) 0.2 % Basophils (%) (Auto) 0.1 % Neutrophils # (Auto) 6.55 1.4-6.5 K/uL Lymphocytes # (Auto) 1.41 1.2-3.4 K/uL Monocytes # (Auto) 0.43 0.11-0.59 K/uL Eosinophils # (Auto) 0.02 0-0.5 K/uL Basophils # (Auto) 0.01 0-0.2 K/uL RDW Standard Deviation 62.1 36.4-46.3 fL RDW Coefficient of Variation 21.0 11.5-14.5 % Immature Granulocyte % (Auto) 0.7 % Immature Granulocyte # (Auto) 0.06 0.00-0.02 K/uL Large Platelets 1+ Polychromasia 1+ Microcytosis PRESENT Sodium Level 138 136-145 mmol/L Potassium Level 3.2 3.5-5.1 mmol/L Chloride Level 100 98-107 mmol/L Carbon Dioxide Level 29 21-32 mmol/L Anion Gap 9.0 3-11 mmol/L Blood Urea Nitrogen 9 7-18 mg/dl Creatinine 0.63 0.60-1.20 mg/dl Est Creatinine Clear Calc Drug Dose 95.5 ml/min Estimated GFR () 117.9 Estimated GFR (Non- 101.7 BUN/Creatinine Ratio 13.7 10-20 Random Glucose 231 70-99 mg/dl Calcium Level 8.9 8.5-10.1 mg/dl Magnesium Level 1.9 1.8-2.4 mg/dl Total Bilirubin 0.5 0.2-1 mg/dl Aspartate Amino Transf (AST/SGOT) 23 15-37 U/L Alanine Aminotransferase (ALT/SGPT) 24 12-78 U/L Alkaline Phosphatase 99 45-117 U/L Total Protein 6.4 6.4-8.2 gm/dl Albumin 3.0 3.4-5.0 gm/dl Globulin 3.4 2.5-4.0 gm/dl Albumin/Globulin Ratio 0.9 0.9-2 Lipase 224 73-393 U/L Bedside Glucose 229 70-90 mg/dl Bedside Lactic Acid Venous 0.98 0.90-1.70 mmol/L Test 11/03/17 20:50 11/03/17 23:54 11/04/17 05:40 11/04/17 08:55 Range/Units Bedside Glucose 115 177 170 70-90 mg/dl White Blood Count 7.51 4.8-10.8 K/uL Red Blood Count 3.90 4.2-5.4 M/uL Hemoglobin 9.9 12.0-16.0 g/dL Hematocrit 31.7 37-47 % Mean Corpuscular Volume 81.3 80-100 fL Mean Corpuscular Hemoglobin 25.4 25-34 pg Mean Corpuscular Hemoglobin Concent 31.2 32-36 g/dl RDW Standard Deviation 61.2 36.4-46.3 fL RDW Coefficient of Variation 20.5 11.5-14.5 % Platelet Count 302 130-400 K/uL Mean Platelet Volume 9.2 7.4-10.4 fL Microbiology Results 11/03/17 Urine Culture, Received Pending Lab Interpretation Lab Interpretation: labs were reviewed Diagnostic Radiology Diagnostic Radiology CT scan abd/ pelvis: IMPRESSION: 1. Postsurgical changes within the right colon/terminal ileum region. 2. Mildly dilated distal ileal bowel loops with a small bowel feces sign and areas of small bowel wall thickening. There is an area of nodular small bowel wall thickening versus adjacent mesenteric nodularity. Correlation with the patient's prior history would be useful to help exclude a neoplastic process. The findings result in a partial small bowel obstruction. 3. Low volume ascites 4. Cholelithiasis 5. Hepatic steatosis 6. 2 cm left adrenal nodule 7. Sigmoid wall thickening versus a nondistended segment. Impression Assessment and Plan Assessment and Plan 52 yr old woman with complicated Crohn's disease, diabetes now with small bowel obstruction. Agree with ng placement, bowel rest, IV hydration. Would recommend GI consultation for recommendations for acute treatment of her Crohn's disease. Most recent CT scan does not show any evidence of persistent abscess. Currently no indication for surgical resection and should she need surgery, would best be done at tertiary care center.
[2017-11-04 09:45] LABS: CALCIUM 7.8 mg/dl (8.5-10.1); CREATININE 0.56 mg/dl (0.60-1.20); POTASSIUM 3.8 mmol/L (3.5-5.1)
[2017-11-04 09:53] LABS: HEMOGLOBIN A1C 10.1 % (4.5-5.6)
[2017-11-04] MEDS: NSS + 20MEQ KCL 1000ML 1,000 ML IV SCH (11:44)
[2017-11-04] MEDS: PANTOprazole INJ 40 MG in SYRINGE 0 ML IV SCH (11:44)
[2017-11-04 11:51] VITALS: BP_SYST 144; BP_SYST 170; BP_DIAS 110; BP_DIAS 70; PULSE 73; TEMP 36.3; O2SAT 97
[2017-11-04 12:13] VITALS: Ht 167.6 cm; Wt 67.0 kg
--- NOTE | 2017-11-04 14:33 | Progress Note ---
Internal Med Progress Note Date of Service: Nov 04, 2017. Provider Documentation: SUBJECTIVE: Patient reports that today the abdominal discomfort has improved. still mild tenderness on palpation but around right lower quadrant. She reports that she is passing gas but not making stool. She would like to have the NG tube taken out and given a diet at this time but she is willing to wait until KUB obtained to further explore bowel imaging before deciding whether she wants NG tube to be removed OBJECTIVE: Exam: General- no acute distress Eyes- EOMI ENT - NG tube in place Neck- no JVD Lungs-clear to auscultation bilaterally, no wheezing, no use of accessory muscles Heart-regular rate at time of exam Abdomen-soft, nontender, positive bowel sounds Extremities- no edema Neuro-awake and alert, no focal deficits ASSESSMENT & PLAN: Patient is a 52-year-old female with a PMH of Crohn's disease ([place] [facility] [place] on Imuran and prednisone, steroid-induced diabetes , anemia, GERD, HTN, depression and narcolepsy who presents with worsening abdominal pain 2 days and was found to have a partial small bowel obstruction. Partial small bowel obstruction -Abdominal pain, distention, nausea x 2 days -CT abd/pelvis with findings consistent with partial small bowel obstruction. -NG tube in place -General surgery recommend GI consultation for recommendations for acute treatment of her Crohn's disease "Most recent CT scan does not show any evidence of persistent abscess. Currently no indication for surgical resection and should she need surgery, would best be done at tertiary care center." -Patient would like to have the NG tube taken out and given a diet at this time but she is willing to wait until KUB obtained to further explore bowel imaging before deciding whether she wants NG tube to be removed Crohn's Disease -Follows with [facility] in [facility] -Hold Imuran until resumed to PO -Given low dose IV solu-medrol in plase of oral prednisone until resumed to PO -Continue IV Flagyl for history of abscess (has completed 13 of 14 days treatment) -inpatient gastroenterology consult placed Steroid-induced DM -Has been on terminologist steroid use, currently being tapered -Checking hgb a1c 10.1 -SSI while in-patient ; Continue reduced home dose of Lantus for now HTN -continue Lopressor 5mg IV Q6, Vasotec 1.25mg IV daily -Once able to tolerate PO, resume amlodipine and metoprolol ER Anemia Hgb 10.8 to 9.9 possibly hemodilutional GERD -Protonix IV 40mg push daily Depression Narcolepsy -Resume Paxil once able to tolerate PO DVT ppx ; Victoriano hose or SCDs Vital Signs: Date Time Temp Pulse Resp B/P (MAP) Pulse Ox O2 Delivery O2 Flow Rate FiO2 11/04/17 11:51 36.3 73 14 170/110 (130) 97 Room Air 144/70 (94) 11/04/17 08:12 36.6 68 14 200/120 (146) 97 133/80 (97) 11/04/17 07:50 Room Air 11/04/17 07:00 36.7 78 18 157/64 (95) 95 Room Air 11/04/17 00:19 144/82 (102) 11/03/17 23:59 175/85 (115) 11/03/17 23:30 Room Air 11/03/17 23:12 36.9 88 18 179/82 (114) 96 Room Air 11/03/17 20:13 37.5 83 18 154/80 (104) 95 11/03/17 20:00 37.5 18 154/80 Room Air 11/03/17 19:50 84 17 166/94 96 11/03/17 19:00 83 17 151/101 93 11/03/17 18:30 80 13 174/91 93 11/03/17 17:15 77 12 92 11/03/17 16:45 77 13 91 11/03/17 16:09 82 11/03/17 16:00 182/92 11/03/17 15:45 78 14 95 11/03/17 15:43 152/88 11/03/17 15:30 152/88 11/03/17 15:15 82 15 96 11/03/17 15:00 149/80 11/03/17 14:45 81 12 Lab Results: Results Past 24 Hours Test 11/03/17 20:50 11/03/17 23:54 11/04/17 05:40 11/04/17 08:55 Range/Units Bedside Glucose 115 177 170 70-90 mg/dl White Blood Count 7.51 4.8-10.8 K/uL Red Blood Count 3.90 4.2-5.4 M/uL Hemoglobin 9.9 12.0-16.0 g/dL Hematocrit 31.7 37-47 % Mean Corpuscular Volume 81.3 80-100 fL Mean Corpuscular Hemoglobin 25.4 25-34 pg Mean Corpuscular Hemoglobin Concent 31.2 32-36 g/dl RDW Standard Deviation 61.2 36.4-46.3 fL RDW Coefficient of Variation 20.5 11.5-14.5 % Platelet Count 302 130-400 K/uL Mean Platelet Volume 9.2 7.4-10.4 fL Sodium Level 141 136-145 mmol/L Potassium Level 3.8 3.5-5.1 mmol/L Chloride Level 106 98-107 mmol/L Carbon Dioxide Level 30 21-32 mmol/L Anion Gap 5.0 3-11 mmol/L Blood Urea Nitrogen 8 7-18 mg/dl Creatinine 0.56 0.60-1.20 mg/dl Est Creatinine Clear Calc Drug Dose 107.4 ml/min Estimated GFR () 122.5 Estimated GFR (Non- 105.7 BUN/Creatinine Ratio 15.2 10-20 Random Glucose 123 70-99 mg/dl Estimated Average Glucose 243 mg/dl Hemoglobin A1c 10.1 4.5-5.6 % Calcium Level 7.8 8.5-10.1 mg/dl Test 11/04/17 11:58 Range/Units Bedside Glucose 152 70-90 mg/dl
--- NOTE | 2017-11-04 15:01 | DIAGNOSTIC IMAGING REPORT ---
KUB CLINICAL HISTORY: Abdominal pain and bowel dilatation. ABNORMAL CT SCAN COMPARISON STUDY: CT scan dated 11/03/2017 FINDINGS: There is a nasogastric tube within the stomach. There is no pathologic bowel dilatation. There is radiographic evidence of a prior hernia mesh repair. IMPRESSION: No conventional radiographic evidence of pathologic bowel dilatation Electronically signed by: Jakub Cancino M.D. 11/04/2017 3:00 PM Dictated Date/Time: 11/04/2017 2:56 PM
--- NOTE | 2017-11-04 15:06 | Medical Consult ---
Consultation Note Date of Service Nov 04, 2017. Consultation Note Reason for consult: Crohn's SBO History of Present Illness Source: patient, clinic records, hospital records, [facility] records 52 yo Female with PMH sig for Crohn's disease. She has a h/o ileocecectomy in 2006; more recently, she has been treated with Imuran, and has a h/o chronic obstruction and steroid dependency. She has a known anastamotic stricture that precluded endoscopy in May; was hosp in September for IBD flare; seen by GI in early October and continued on Imuran, given high dose steroids; seen by colorectal last week who rec conservative care; awaiting initiation of Humira. She now presents with worsening abd pain x 1 day. She tells me the pain is diffuse, and was associated with decreased flatus. She recently decreased her prednisone from 30 to 20 in the past 2-[address] on admission showed mild ileal dilation and thickening, read as pSBO. She received NG decompression, 10 mg Solumedrol + Flagyl overnight. She has no pain at present, is hungry and passing flatus. KUB with no bowel dilation. Past Medical/Surgical History Depression, GERD, DM from steroids, tobacco use, HTN, narcolepsy Social History Smoking Status: Current Every Day Smoker (4-5 cigarettes ) Alcohol Use: occasionally Housing status: lives with family Allergies Coded Allergies: Sulfa Antibiotics (Unverified Allergy, Intermediate, RASH, 11/03/17) Home Medications Scheduled Amlodipine (Norvasc), 10 MG PO DAILY Azathioprine (Imuran), 100 MG PO DAILY Esomeprazole Magnesium (Nexium), 1 CAP PO BID Insulin Glargine (Lantus Solostar), 7 UNITS SC QPM Metoprolol Succinate (Toprol Xl), 25 MG PO DAILY Metronidazole (Flagyl), 250 MG PO TID Paroxetine (Paxil), 40 MG PO BID Prednisone (Prednisone), 1 DOSE PO UD Probiotic Product (Probiotic), 1 CAP PO TID Ranitidine (Zantac), 300 MG PO QAM Review of Systems Ten systems reviewed and negative except as noted in the HPI. Physical Exam H&P v2 Physical Exam Vital Signs Date Time Temp Pulse Resp B/P (MAP) Pulse Ox O2 Delivery O2 Flow Rate FiO2 11/04/17 15:35 37.0 75 15 178/90 (119) 97 Room Air 163/80 (107) 11/04/17 11:51 36.3 73 14 170/110 (130) 97 Room Air 144/70 (94) 11/04/17 08:12 36.6 68 14 200/120 (146) 97 133/80 (97) 11/04/17 07:50 Room Air 11/04/17 07:00 36.7 78 18 157/64 (95) 95 Room Air 11/04/17 00:19 144/82 (102) 11/03/17 23:59 175/85 (115) 11/03/17 23:30 Room Air 11/03/17 23:12 36.9 88 18 179/82 (114) 96 Room Air 11/03/17 20:13 37.5 83 18 154/80 (104) 95 11/03/17 20:00 37.5 18 154/80 Room Air 11/03/17 19:50 84 17 166/94 96 11/03/17 19:00 83 17 151/101 93 11/03/17 18:30 80 13 174/91 93 11/03/17 17:15 77 12 92 General Appearance: Appears comfortable, NAD. She is falling asleep during my interview. HEENT: Bailey facies, markedly poor dentition, no thrush Respiratory/Chest: chest non-tender, lungs clear, normal breath sounds, no respiratory distress, no accessory muscle use Cardiovascular: regular rate, rhythm, no murmur, normal peripheral pulses Abdomen/GI: Non distended, + BS, non tendern throughout with deep palpation Extremities/Musculoskelatal: normal inspection, no calf tenderness, no pedal edema Neurologic/Psych: no motor/sensory deficits, alert, normal mood/affect, oriented x 3 Skin: normal color, warm/dry Diagnostics Laboratory Results Labs reviewed; stable anemia, CRP not checked Impression Assessment and Plan: H/o Crohn's disease Chronic anastamotic stricture Steroid dependent undergoing taper, awaiting Humira next week Admit worsening pain, pSBO - Her acute pain may have been secondary to transient obstruction at her known stricture, which appears to have resolved. This may have been precipitated by tapering of her steroids. - Would recommend resuming low residue diet, and continuing prednisone 30 mg. Would also use daily Miralax to help with stool consistency, and complete Flagyl course to treat possible SIBO. She can be discharged if she tolerates PO ; she can f/u with her primary GI to begin Humira. Please call with questions over weekend.
--- NOTE | 2017-11-04 15:30 | Progress Note ---
Progress Note Date of Service Nov 04, 2017. Progress Note Patient was informed of KUB results FINDINGS: There is a nasogastric tube within the stomach. There is no pathologic bowel dilatation. There is radiographic evidence of a prior hernia mesh repair. IMPRESSION: No conventional radiographic evidence of pathologic bowel dilatation Patient wishes the NG tube to be removed. She feels her symptoms have improved. She does not want to wait for transitioning to oral medication during the hospital stay. She does not want to wait for inpatient gastroenterology assessment Patient should follow up with her primary care doctor as outpatient She also has an outpatient general surgery appointment: 11/09/2017 Appointment General Surgery, Saul Tinoco,
[2017-11-04 15:35] VITALS: BP_SYST 163; BP_SYST 178; BP_DIAS 80; BP_DIAS 90; PULSE 75; TEMP 37; O2SAT 97
--- NOTE | 2017-11-04 15:42 | Discharge Instructions ---
Discharge Instructions Date of Service Nov 04, 2017. Admission Reason for Admission: Partial Small Bowel Obstruction Discharge Discharge Diagnosis / Problem: Partial small bowel obstruction - resolving. Crohn's disease. Diabetes Discharge Goals Goal(s): Improve function, Improve disease control Activity Recommendations Activity Limitations: per Instructions/Follow-up section . Instructions / Follow-Up Instructions / Follow-Up Hospital Course and Discharge Instructions Patient is a 52-year-old female with a PMH of Crohn's disease (s/p ileocecectomy [place] [facility] [place] in 2006) on Imuran and prednisone, steroid-induced diabetes , anemia, GERD, HTN, depression and narcolepsy who presents with worsening abdominal pain 2 days and was found to have a partial small bowel obstruction. -Admission CT on 11/04/17 consistent with partial small bowel obstruction -initially had NG placed in the ED on 11/03/17 -General surgery recommend GI consultation for recommendations for acute treatment of her Crohn's disease "Most recent CT scan does not show any evidence of persistent abscess. Currently no indication for surgical resection and should she need surgery, would best be done at tertiary care center." -patient passed gas on 11/04/17, she wanted NG tube removed -Patient was informed of KUB results 11/04/17 "FINDINGS: There is a nasogastric tube within the stomach. There is no pathologic bowel dilatation. There is radiographic evidence of a prior hernia mesh repair. IMPRESSION: No conventional radiographic evidence of pathologic bowel dilatation" -Patient wishes the NG tube to be removed. She feels her symptoms have improved as she is passing gas and less abdominal discomfort. She does not want to wait for transitioning to oral medication during the hospital stay. Main Discharge diagnosis partial small bowel obstruction with symptoms reoslving Crohn's disease Other diagnosis: steroid-induced diabetes, anemia, GERD, HTN, depression and narcolepsy Discharge Instructions Patient should follow up with her primary care doctor as outpatient Dr. 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 Patient also has an outpatient general surgery appointment: 11/09/2017 Appointment General Surgery, Saul Tinoco, DO Please slowly resume a diet from liquid diet to usual glucose controlled diet as tolerated Please monitor your blood sugars while you are taking insulin as you may require less insulin if you have less oral intake Please take your home oral medications as tolerated Current Hospital Diet Patient's current hospital diet: Full Liquid Diet Discharge Diet Recommended Diet: Full Liquid Diet Pending Studies Studies pending at discharge: no Laboratory Results 11/04/17 08:55 11/04/17 08:55 Test 11/03/17 12:13 11/03/17 12:15 11/03/17 12:28 11/04/17 08:55 Urine Color YELLOW Urine Appearance CLEAR (CLEAR) Urine pH 7.0 (4.5-7.5) Urine Specific [place] 1.014 (1.000-1.030) Urine Protein TRACE (NEG) Urine Glucose (UA) 3+ (NEG) Urine Ketones TRACE (NEG) Urine Occult Blood NEG (NEG) Urine Nitrite NEG (NEG) Urine Bilirubin NEG (NEG) Urine Urobilinogen NEG (NEG) Urine Leukocyte Esterase SMALL (NEG) Urine WBC (Auto) 10-30 /hpf (0-5) Urine RBC (Auto) 0-4 /hpf (0-4) Urine Hyaline Casts (Auto) 0 /lpf (0-5) Urine Epithelial Cells (Auto) >30 /lpf (0-5) Urine Bacteria (Auto) 1+ (NEG) Urine Renal Epithelial Cells /lpf (0-5) Urine Yeast (Auto) BUDDING (NONE PRSENT) Immature Granulocyte % (Auto) 0.7 % White Blood Count 8.48 K/uL (4.8-10.8) Red Blood Count 4.21 M/uL (4.2-5.4) 3.90 M/uL (4.2-5.4) Hemoglobin 10.8 g/dL (12.0-16.0) Hematocrit 33.9 % (37-47) Mean Corpuscular Volume 80.5 fL (80-100) 81.3 fL (80-100) Mean Corpuscular Hemoglobin 25.7 pg (25-34) 25.4 pg (25-34) Mean Corpuscular Hemoglobin Concent 31.9 g/dl (32-36) 31.2 g/dl (32-36) Platelet Count 334 K/uL (130-400) Mean Platelet Volume 9.6 fL (7.4-10.4) 9.2 fL (7.4-10.4) Neutrophils (%) (Auto) 77.3 % Lymphocytes (%) (Auto) 16.6 % Monocytes (%) (Auto) 5.1 % Eosinophils (%) (Auto) 0.2 % Basophils (%) (Auto) 0.1 % Neutrophils # (Auto) 6.55 K/uL (1.4-6.5) Lymphocytes # (Auto) 1.41 K/uL (1.2-3.4) Monocytes # (Auto) 0.43 K/uL (0.11-0.59) Eosinophils # (Auto) 0.02 K/uL (0-0.5) Basophils # (Auto) 0.01 K/uL (0-0.2) Immature Granulocyte # (Auto) 0.06 K/uL (0.00-0.02) Large Platelets 1+ Polychromasia 1+ Microcytosis PRESENT Magnesium Level 1.9 mg/dl (1.8-2.4) Total Bilirubin 0.5 mg/dl (0.2-1) Aspartate Amino Transf (AST/SGOT) 23 U/L (15-37) Alanine Aminotransferase (ALT/SGPT) 24 U/L (12-78) Alkaline Phosphatase 99 U/L (45-117) Total Protein 6.4 gm/dl (6.4-8.2) Albumin 3.0 gm/dl (3.4-5.0) Globulin 3.4 gm/dl (2.5-4.0) Albumin/Globulin Ratio 0.9 (0.9-2) Lipase 224 U/L (73-393) Bedside Lactic Acid Venous 0.98 mmol/L (0.90-1.70) RDW Standard Deviation 61.2 fL (36.4-46.3) RDW Coefficient of Variation 20.5 % (11.5-14.5) Anion Gap 5.0 mmol/L (3-11) Est Creatinine Clear Calc Drug Dose 107.4 ml/min Estimated GFR () 122.5 Estimated GFR (Non- 105.7 BUN/Creatinine Ratio 15.2 (10-20) Estimated Average Glucose 243 mg/dl Hemoglobin A1c 10.1 % (4.5-5.6) Calcium Level 7.8 mg/dl (8.5-10.1) Test 11/04/17 11:58 Bedside Glucose 152 mg/dl (70-90) Date/Time Source Procedure Growth Status 11/03/17 12:13 Urine , Clean Catch Urine Culture - Preliminary PIN-POINT GROWTH PRESENT, REINCUBATING. Resulted Hemoglobin A1c Test 11/04/17 08:55 Range/Units Estimated Average Glucose 243 mg/dl Hemoglobin A1c 10.1 H 4.5-5.6 % Medical Emergencies . Who to Call and When: Medical Emergencies: If at any time you feel your situation is an emergency, please call 911 immediately. . Non-Emergent Contact Non-Emergency issues call your: Primary Care Provider, Surgeon Call Non-Emergent contact if: you have any medication questions . . "Provider Documentation" section prepared by Evangelista Lieberman. .
[2017-11-04] MEDS ORDERED: PRED10TA PO (16:01)
--- NOTE | 2017-11-04 16:07 | Discharge Summary ---
Discharge Summary Date of Service Nov 04, 2017. Discharge Summary Admission Date: Nov 03, 2017 at 18:32 Discharge Date: Nov 04, 2017 Discharge Disposition: Home Principal Diagnosis: Main Discharge diagnosis partial small bowel obstruction with symptoms reoslving Crohn's disease Secondary Diagnoses/Problems: Other diagnosis: steroid-induced diabetes, anemia, GERD, HTN, depression and narcolepsy Medication Reconciliation New Medications: Prednisone (Prednisone) 10 Mg Tab 3 TAB PO DAILY for 14 Days, #42 TAB Continued Medications: Amlodipine (Norvasc) 10 Mg Tab 10 MG PO DAILY Azathioprine (Imuran) 50 Mg Tab 100 MG PO DAILY Esomeprazole Magnesium (Nexium) 40 Mg Cap 1 CAP PO BID for 30 Days, #60 CAP 5 Refills Insulin Glargine (Lantus Solostar) 100 Unit/Ml Inj 7 UNITS SC QPM Metoprolol Succinate (Toprol Xl) 25 Mg Tabcr 25 MG PO DAILY Metronidazole (Flagyl) 250 Mg Tab 250 MG PO TID, TAB On day 12/14 for small intestinal crohn's abscess Paroxetine (Paxil) 20 Mg Tab 40 MG PO BID TWO 20 MG TABLETS TWICE DAILY Probiotic Product (Probiotic) 1 Cap Cap 1 CAP PO TID Ranitidine (Zantac) 150 Mg Tab 300 MG PO QAM TWO 150 MG TABLETS EVERY MORNING, PER PATIENT. Discontinued Medications: Prednisone (Prednisone) 10 Mg Tab 1 DOSE PO UD TAPER BY 10 MG EVERY 2 WEEKS. Admission Information HPI (per Admitting provider): Patient is a 52-year-old female with a PMH of Crohn's disease (s/p ileocece[place] [facility] [place]) on Imuran and prednisone, steroid-induced diabetes , anemia, GERD, HTN, depression and narcolepsy who presents with worsening abdominal pain 2 days. Patient has been at the [employer] this week and started to experience constant epigastric and lower abdominal pain 2 days ago associated with nausea and bloating. Normally has 2-3 loose stools daily, but last stool was yesterday morning. Denies any fever, chills, hematemesis or vomiting. Follows with [facility] [place] for Crohn's disease and is on Imuran and a tapering dose of prednisone (down to 10mg PO daily) with plans to initiate Humira soon. H/o SBO in the past, most recently occurring in September. Has an abscess of the small intestine for which she has been taking Flagyl 3 times daily. Is on day 12 of 14 for antibiotic. Was also recently started on Lantus due to suspected steroid-induced diabetes. Did not take any home medications today. PCP is Dr. Castrejon in [place]. Physical Exam (per Admitting): General Appearance: WD/WN, + mild distress, + pertinent finding (NG tube ) Head: normocephalic, atraumatic Eyes: normal inspection, PERRL, sclerae normal ENT: normal ENT inspection, hearing grossly normal, pharynx normal (mucous membranes moist ) Neck: supple, thyroid normal, trachea midline Respiratory/Chest: chest non-tender, lungs clear, normal breath sounds, no respiratory distress, no accessory muscle use Cardiovascular: regular rate, rhythm, no murmur, normal peripheral pulses Abdomen/GI: soft, + tenderness (Epigastric and lower abdominal tenderness. No guarding.), + abnormal bowel sounds (Hypoactive), + distended, + pertinent finding (Well-healed vertical surgical scar) Extremities/Musculoskelatal: normal inspection, no calf tenderness, no pedal edema Neurologic/Psych: no motor/sensory deficits, alert, normal mood/affect, oriented x 3 Skin: normal color, warm/dry Hospital Course Hospital Course and Discharge Instructions Patient is a 52-year-old female with a PMH of Crohn's disease (s/p ileocecectomy at [facility] [place] 2006) on Imuran and prednisone, steroid-induced diabetes , anemia, GERD, HTN, depression and narcolepsy who presents with worsening abdominal pain 2 days and was found to have a partial small bowel obstruction. -Admission CT on 11/04/17 consistent with partial small bowel obstruction -initially had NG placed in the ED on 11/03/17 -General surgery recommend GI consultation for recommendations for acute treatment of her Crohn's disease "Most recent CT scan does not show any evidence of persistent abscess. Currently no indication for surgical resection and should she need surgery, would best be done at tertiary care center." -patient passed gas on 11/04/17, she wanted NG tube removed -Patient was informed of KUB results 11/04/17 "FINDINGS: There is a nasogastric tube within the stomach. There is no pathologic bowel dilatation. There is radiographic evidence of a prior hernia mesh repair. IMPRESSION: No conventional radiographic evidence of pathologic bowel dilatation" -Patient wishes the NG tube to be removed. She feels her symptoms have improved as she is passing gas and less abdominal discomfort. She does not want to wait for transitioning to oral medication during the hospital stay. Main Discharge diagnosis partial small bowel obstruction with symptoms reoslving Crohn's disease Other diagnosis: steroid-induced diabetes, anemia, GERD, HTN, depression and narcolepsy Discharge Instructions Patient should follow up with her primary care doctor as outpatient Dr. 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 Discharge Instructions see above
[2017-11-04 16:42] VITALS: BP 163/80; PULSE 75; TEMP 37; O2SAT 97
== END 2017-11-04 17:58 | disposition home or self-care (01) | DRG 386 ==
LOC: EDBD 11:45 → C.EDC 11:48 → C.MSW 18:32 → EDBEDREQSVC 19:11 → ENRESERV 19:11 → CANRESERV 19:11 → ENRESERV 19:22
PROVIDERS: ADMIT Hospitalist; ATTEND Hospitalist
DX: K50.912 Crohn's disease, unspecified, with intestinal obstruction (principal); K50.914 Crohn's disease, unspecified, with abscess; E09.9 Drug or chemical induced diabetes mellitus without complications; I10 Essential (primary) hypertension; D64.9 Anemia, unspecified; K21.9 Gastro-esophageal reflux disease without esophagitis; F32.9 Major depressive disorder, single episode, unspecified; G47.419 Narcolepsy without cataplexy; F17.210 Nicotine dependence, cigarettes, uncomplicated; Z90.49 Acquired absence of other specified parts of digestive tract; Z79.4 Long term (current) use of insulin; Z79.52 Long term (current) use of systemic steroids; Z79.899 Other long term (current) drug therapy; Z88.2 Allergy status to sulfonamides